=== PATIENT | female | born 1985 | race Caucasian/White ===

== ENCOUNTER → 2018-03-04 16:00 | Outpatient (CLI) | payer OTHER, SELFPAY ==
[2018-03-09 16:14] LABS: HPV Reflexed? NOT INDICATED
== END ==
PROVIDERS: Visit Provider Obstetrics & Gynecology
DX: Z12.4 Encounter for screening for malignant neoplasm of cervix (principal); Z12.72 Encounter for screening for malignant neoplasm of vagina
CPT/HCPCS: 88175; G0145

== ENCOUNTER → 2018-08-02 07:11 | Outpatient (CLI) | payer OTHER, SELFPAY ==
--- NOTE | 2018-08-02 07:14 | BI_ITS ---
MAMMOGRAPHY - BILATERAL SCREENING REASON FOR EXAM: Female, 33 years old. Routine annual screening examination. PERTINENT HISTORY: Mother with breast cancer. TECHNIQUE: Digital bilateral breast pérez (3D mammographic acquisition) in the CC and MLO projections. 2-D mediolateral oblique (MLO) and craniocaudad (CC) views of both breasts were obtained. CAD: Full Field Digital Mammography with Computer Added Detection was performed. COMPARISON: Comparison is made with prior examination dated July 15, 2011. FINDINGS: Breast Composition: There are scattered areas of fibroglandular density. There are no dominant masses or suspicious calcifications. There is a 5.8 mm x 5.6 mm rounded nodular density in the upper slightly lateral aspect of the left breast. Correlation with ultrasound is recommended. No other significant abnormalities are identified. BI/SCREENING MAMM (CAD), BILAT IMPRESSION: 5.8 mm x 5.6 mm nodular density in the upper slightly lateral aspect of the left breast as described. Correlation with ultrasound is recommended. ASSESSMENT CATEGORY: BIRADS Category 0: Incomplete. Need additional imaging evaluation. A letter regarding these results will be sent to the patient by the facility within 30 days. Approximately 10% of breast cancers are not detected by mammography. A normal mammogram should not delay biopsy of a clinically suspicious abnormality. [id number] Electronically Signed: Omi Singleton MD at 8:22 EDT Tel [phone], Service support ,
== END ==
PROVIDERS: Visit Provider Obstetrics & Gynecology
DX: Z12.31 Encounter for screening mammogram for malignant neoplasm of breast (principal)
CPT/HCPCS: 77063; 77067

== ENCOUNTER → 2018-08-19 08:01 | Outpatient (CLI) | payer OTHER, SELFPAY ==
--- NOTE | 2018-08-19 08:11 | US_ITS ---
STUDY: ULTRASOUND BREAST - LEFT REASON FOR EXAM: Female, 33 years old. Abnormal left mammogram, please see mammogram report 08/02/2018 with recommendation of additional targeted ultrasound imaging. TECHNIQUE: Axial and longitudinal images of the LEFT breast were performed with a high resolution ultrasound transducer. COMPARISON: No prior ultrasound imaging available. Correlation bowel mammogram 08/02/2018. FINDINGS: LEFT Breast: There is a lesion in the upper outer quadrant. The lesion measures 0.6 x 0.7 x 0.4 cm. Clock notation: 1 o'clock position. Distance from nipple: 5 cm. Posterior Enhancement: Mild Posterior Shadowing: None Margins: Smooth and sharply demarcated Echogenicity: Isoechoic Compression effect on Shape: No change Additional finding 12:00 position 3 cm from nipple is a oval anechoic wider than tall smooth margin simple cyst without internal color Doppler signal approximate 0.4 x 0.3 x 0.2 cm. US/Breast Limited Unilateral IMPRESSION: Left breast 1:00 position 5 sagittal and nipple rounded isoechoic 0.6 x 0.7 x 0.4 cm lesion, cannot exclude neoplasm. Recommend biopsy. Also recommend comparison to any prior left breast imaging which are not available at this time dictation. ASSESSMENT CATEGORY: BIRADS Category 4: Suspicious - Biopsy Should Be Considered. A letter regarding these results will be sent to the patient by the facility within 30 days. Negative mammographic results should not deter biopsy as a palpable lesion if present should be managed based on clinical grounds with biopsy performed if clinically persistent for 3 months or increasing size. Approximately 10% of breast cancers are not detected by mammography. A normal mammogram should not delay biopsy of a clinically suspicious abnormality. Dense breast tissue may obscure neoplasm. Electronically Signed: Jai Barnhart, at 9:00 EDT Tel , Service support ,
== END ==
PROVIDERS: Visit Provider Obstetrics & Gynecology
DX: R92.2 Inconclusive mammogram (principal)
CPT/HCPCS: 76642

== ENCOUNTER → 2018-08-31 14:09 | Outpatient (CLI) | payer OTHER, SELFPAY ==
--- NOTE | 2018-08-31 14:11 | US_ITS ---
STUDY: ULTRASOUND BREAST - LEFT REASON FOR EXAM: Female, 33 years old. Ultrasound guided left breast biopsy. TECHNIQUE: Axial and longitudinal images of the LEFT breast were performed with a high resolution ultrasound transducer. COMPARISON: Comparison is made with prior sonogram of the left breast dated August 19, 2018. FINDINGS: LEFT Breast: Under direct sonographic guidance, the surgeon performed 4 core biopsies of the 5 mm x 7 mm x 5 mm hypoechoic nodule at the 1:00 position of the breast at 5 cm from the nipple. US/US Breast Biopsy 1st Lesion IMPRESSION: Successful ultrasound-guided breast biopsy of the nodule at the 1:00 position in the breast at 5 cm from the nipple. ASSESSMENT CATEGORY: BIRADS Category 2: Benign. A letter regarding these results will be sent to the patient by the facility within 30 days. Electronically Signed: Omi Singleton MD at 15:32 EDT Tel [phone], Service support ,
--- NOTE | 2018-08-31 14:19 | BI_ITS ---
MAMMOGRAPHY - UNILATERAL DIAGNOSTIC: LEFT BREAST REASON FOR EXAM: Female, 33 years old. Clip placement. PERTINENT HISTORY: Status post ultrasound-guided breast biopsy. TECHNIQUE: Mediolateral and craniocaudad views were obtained. CAD: Full Field Digital Mammography with Computer Added Detection was performed. COMPARISON: Comparison is made with prior mammogram dated August 02, 2018. FINDINGS: Breast Composition: There are scattered areas of fibroglandular density. A tissue clip marker is seen in the small nodular density in the upper slightly lateral aspect of the left breast. No other significant abnormalities are identified. BI/DIAG MAMM W/CAD, UNILAT IMPRESSION: Status post ultrasound-guided biopsy of the nodular density in the upper slightly lateral portion of the left breast with clip placement. ASSESSMENT CATEGORY: BIRADS Category 2: Benign. A letter regarding these results will be sent to the patient by the facility within 30 days. Approximately 10% of breast cancers are not detected by mammography. A normal mammogram should not delay biopsy of a clinically suspicious abnormality. Electronically Signed: Omi Singleton MD at 15:34 EDT Tel [phone], Service support ,
--- NOTE | 2018-08-31 14:30 | BRBX_PTH ---
PATIENT: SHERLYN GILLIAM LOC: [facility] U#:[id number] AGE/SX: 40/F ROOM: RE08/31/[address]: Dr. Christina Mancia MD : [id number] BED: DIS: SPEC #: [id number] RECD: 08/31/18 15:13 STATUS: LUIS ENRIQUE MIN #: [id number] IAIN: 08/31/18 14:[address]: Christina Mancia DEPT: SURGICAL PATHOLOGY RECD BY: Amrit Duran ENTERED: 09/01/18 08:23 SP TYPE: BREAST BX OTHR DR: No Primary Care Phys Tissues: Left breast, NOS Procedures: Surgery Specimen Level IV HEADER OPERATION: Left breast biopsy PRE-OP DIAGNOSIS: Left breast nodule TISSUE SUBMITTED: Left breast ISCHEMIC TIME: 1 minute FIXATION TIME: 29 hours MICROSCOPIC DIAGNOSIS Left breast, core biopsy: Fibroadenoma. Negative for atypia or malignancy. SJ:anya 09/02/18 COMMENT Correlation with clinical findings and appropriate follow up are necessary. MICROSCOPIC DESCRIPTION Slides are reviewed. GROSS DESCRIPTION Received in fixative is one container labeled with the patient's name and designated left breast. The specimen consists of multiple elongated fragments of albright-yellow fibroadipose tissue that in aggregate measure 1.5 x 1 x 0.1 cm. The entire specimen is submitted in one cassette. / SJ:rg 09/01/18 TC:1 CPT: 03666
--- NOTE | 2018-08-31 14:48 | PCM.OP.BLANK ---
Operative Report Date of Procedure: 08/31/18 Procedure: ultrasound-guided core biopsy Indications: 33 year-old female with isoechoic nodule at 1:00 in the left breast 5 centimeters from the nipple. Risk benefits were discussed the patient and she elected to proceed with ultrasound guided core biopsy with clip placement Description of procedure: Patient was brought into the ultrasound room in the left breast was marked. A timeout was completed verifying correct patient, procedure, site, specially, prior to beginning procedure. The left breast was prepped and draped in usual sterile fashion and using local anesthesia was obtained with 1% lidocaine with epi. The lesion was located with the ultrasound. Small incision was made with 11 blade to introduced the mammotome through the skin. Under ultrasound guidance multiple core samples were obtained using then 13-gauge mammotome and sent in formalin for pathology. The mammotome mammostar clip was then deployed into the biopsy cavity under ultrasound guidance and a picture was taken. Upon completion procedure hemostasis was obtained and a Steri-Strip and OpSite were placed. Patient was then taken to the mammography suite for clip verification. The clip was verified and the nodule is no longer seen on the cc view.. The patient tolerated the procedure well and was discharged from the breast imaging department good condition. complications: none
== END ==
PROVIDERS: Visit Provider Surgery
DX: D24.2 Benign neoplasm of left breast (principal); N63.20 Unspecified lump in the left breast, unspecified quadrant
CPT/HCPCS: 19083; 77065; 88305

== ENCOUNTER → 2018-10-01 08:30 | Outpatient (CLI) | payer OTHER, SELFPAY ==
[2018-10-01 11:26] LABS: Internal QC Validated? YES +Cl - CLEAR BKGD; Monotest Negative (Negative)
[2018-10-01 11:27] LABS: Record Kit Lot#, Mono 13171517
== END ==
PROVIDERS: Referring Provider Nurse Practitioner; Visit Provider Nurse Practitioner
DX: J02.9 Acute pharyngitis, unspecified (principal); R53.81 Other malaise; R53.83 Other fatigue
CPT/HCPCS: 86308

== ENCOUNTER → 2019-05-26 15:20 | Outpatient (CLI) | payer OTHER, SELFPAY ==
[2018-08-30 13:41] VITALS: BMI 33.0
[2019-06-02 11:29] LABS: HPV Reflexed? NOT INDICATED
== END ==
PROVIDERS: Visit Provider Obstetrics & Gynecology
DX: Z12.4 Encounter for screening for malignant neoplasm of cervix (principal)
CPT/HCPCS: 88175; G0145

== ENCOUNTER → 2020-07-31 14:49 | Outpatient (CLI) | payer OTHER, SELFPAY ==
[2018-08-30 13:41] VITALS: BMI 33.0
--- NOTE | 2020-07-31 14:54 | US_ITS ---
STUDY: THYROID ULTRASOUND REASON FOR EXAM: Female, 35 years old. Nodule TECHNIQUE: Ultrasound evaluation of the thyroid was performed with real-time and static prieto-scale imaging. COMPARISON: None. FINDINGS: RIGHT LOBE: The right lobe of the thyroid gland measures 6.2 x 2.2 x 2.5 cm. There is a heterogeneous echotexture. There is a mid thyroid 1.6 x 1.4 cm complex predominantly solid nodule with vascularity. A smaller posterior 4 mm solid nodule is also noted. LEFT LOBE: The left lobe of the thyroid gland measures 5.0 x 2.0 x 1.8 cm. There is a heterogeneous echotexture. There are multiple nodules throughout the lobe with the largest measuring 1.1 cm. ISTHMUS: The isthmus measures 8 mm . The regional lymph nodes are normal. US/Thyroid IMPRESSION: Enlarged heterogeneous bilateral thyroid lobes with multiple nodules, left more than right. Electronically Signed: Ari Schafer DO at 23:53 EDT Tel [phone], Service support ,
== END ==
PROVIDERS: PCP Nurse Practitioner Family; Referring Provider Nurse Practitioner Family; Visit Provider Nurse Practitioner Family
DX: E04.1 Nontoxic single thyroid nodule (principal)
CPT/HCPCS: 76536

== ENCOUNTER → 2020-08-22 07:05 | Outpatient (CLI) | payer OTHER, SELFPAY ==
[2018-08-30 13:41] VITALS: BMI 33.0
--- NOTE | 2020-08-22 07:08 | BI_ITS ---
MAMMOGRAPHY - BILATERAL SCREENING REASON FOR EXAM: Female, 35 years old. Routine annual screening examination. PERTINENT HISTORY: Mother with breast cancer. Prior left ultrasound breast biopsy. Bilateral breast implants. TECHNIQUE: Digital bilateral breast daniela (3D mammographic acquisition) in the CC and MLO projections. 2-D mediolateral oblique (MLO) and craniocaudad (CC) views of both breasts were obtained. CAD: Full Field Digital Mammography with Computer Added Detection was performed. COMPARISON: Comparison is made with prior examination is 08/02/2018. FINDINGS: Breast Composition: There are scattered areas of fibroglandular density. There are no dominant masses or suspicious calcifications. Since prior examination, bilateral breast implants are seen. The previously seen 5.8 mm x 5.6 mm well-defined nodule in the upper slightly outer aspect of the left breast is not seen at this time. A tissue clip marker is seen at that site. No other significant abnormalities are identified. BI/SCREEN MAMM (CAD) W/DANIELA BILAT IMPRESSION: Status post bilateral breast implant. Status post ultrasound-guided biopsy of the small nodule in the left breast as described. Yearly follow-up mammogram recommended. (A) ASSESSMENT CATEGORY: BIRADS Category 2: Benign. A letter regarding these results will be sent to the patient by the facility within 30 days. Approximately 10% of breast cancers are not detected by mammography. A normal mammogram should not delay biopsy of a clinically suspicious abnormality. [id number] Electronically Signed: Omi Singleton, at 9:36 EDT , Service support ,
== END ==
PROVIDERS: PCP Nurse Practitioner Family; Referring Provider Obstetrics & Gynecology; Visit Provider Obstetrics & Gynecology
DX: Z12.31 Encounter for screening mammogram for malignant neoplasm of breast (principal); Z80.3 Family history of malignant neoplasm of breast
CPT/HCPCS: 77063; 77067

== ENCOUNTER → 2025-02-15 | Outpatient (CLI) | payer BC, SELFPAY ==
--- NOTE | 2025-02-15 08:43 | BI_ITS ---
EXAM: SCRN MAMM (CAD)W/DANIELA BILAT 02/15/2025 CLINICAL HISTORY: F, Age 39 y/o , SCREENING TECHNIQUE: Bilateral screening digital breast tomosynthesis with 2D and 3D images. Computer aided detection. COMPARISON: Prior exam(s) dated 08/22/2020. FINDINGS: TISSUE DENSITY: The breast tissue is composed of scattered area of fibroglandular density. There are bilateral retropectoral silicone implants. Bilateral Breast Mammographic Findings: There is a mass in the central inner left breast at middle depth. No significant masses, calcifications or other abnormalities are identified in the right breast. BI/SCRN MAMM (CAD)W/DANIELA BILAT IMPRESSION: Right Breast: BIRADS 1 NEGATIVE. Left Breast: BIRADS 0 Incomplete: Need additional imaging evaluation and/or pr ior mammograms for comparison.. OVERALL FINAL ASSESSMENT: BIRADS 0 Incomplete: Need additional imaging evaluati on and/or prior mammograms for comparison.. RECOMMENDATION: Recommendation: Ultrasound. A letter with findings and recommendations will be mailed to the patient. Reading Location: [id number]
== END | disposition home or self-care (01) ==
PROVIDERS: Referring Provider Obstetrics & Gynecology; Visit Provider Obstetrics & Gynecology
DX: Z12.31 Encounter for screening mammogram for malignant neoplasm of breast (principal)
CPT/HCPCS: 77063; 77067

== ENCOUNTER → 2025-02-21 | Outpatient (CLI) | payer BC, SELFPAY ==
--- NOTE | 2025-02-21 13:20 | US_ITS ---
PROCEDURE: BREAST LIMITED UNILATERAL 02/21/2025 REASON FOR EXAM: MASS CENTRAL INNER LEFT BREAST 39-year-old female presents for recall from screening for a finding in the left breast visualized on the examination of 02/15/2025. Family history of breast cancer in her mother in her 30s. TECHNIQUE: Targeted left breast ultrasound. COMPARISON: 02/15/2025, 08/22/2020 FINDINGS: Left breast ultrasound was targeted to the lateral. Follow-up examination performed for the left breast mass visualized in the central inner left breast at middle depth on examination of 02/15/2025. On the present examination, the ultrasound of the left breast demonstrates a cyst at 9 o'clock 8 cm from the nipple, measuring 0.6 x 0.5 x 0.2 cm. This is the likely correlate for the mammographic finding. US/Breast Limited Unilateral IMPRESSION: Impression: Left breast cyst at 9 o'clock 8 cm from the nipple is benign. Birads: BI-RADS 2: BENIGN. RECOMMEND ANNUAL MAMMOGRAPHIC SCREENING. Reading Location: [id number]
== END | disposition home or self-care (01) ==
PROVIDERS: Referring Provider Obstetrics & Gynecology; Visit Provider Obstetrics & Gynecology
DX: N63.20 Unspecified lump in the left breast, unspecified quadrant (principal); Z80.3 Family history of malignant neoplasm of breast
CPT/HCPCS: 76642